=== PATIENT | female | born 1960 | race Caucasian/White ===

== ENCOUNTER 2024-04-01 14:17 | Emergency (ER) | payer OTHER ==
[~2024-04-01] VITALS: Ht 167.6 cm; Wt 76.6 kg
[2024-04-01 14:19] VITALS: BP 130/75; PULSE 86; RESP 14; TEMP 98.4; O2SAT 99
[2024-04-01] MEDS ORDERED: PRED10TA23 PO (16:39)
[2024-04-01] MEDS ORDERED: DOXY-460 PO (16:41)
== END 2024-04-01 16:53 | disposition home or self-care (01) ==
LOC: ER 14:18
DX: L03.116 Cellulitis of left lower limb (principal); F17.210 Nicotine dependence, cigarettes, uncomplicated; M79.662 Pain in left lower leg; Z88.5 Allergy status to narcotic agent; Z88.8 Allergy status to other drugs, medicaments and biological substances
CPT/HCPCS: 93971; 99284